=== PATIENT | female | born 1970 | race African-American/Black ===

== ENCOUNTER 2016-12-13 07:29 | Emergency (ER) | payer OTHER ==
[~2016-12-13] VITALS: Ht 177.8 cm; Wt 89.0 kg
[~2016-12-13 07:29] MED LIST: AMLO-511 PO; ASPI-556 PO; ATOR40TA28 PO; CHL25 PO; ESOM20CA31 PO; GLYB5TAB5 PO; IBUP-2070 PO; LOSA50TA37 PO; METF500T4 PO; MIRT15 PO; SPIR25 PO; VITAD1000 PO
[2016-12-13] MEDS ORDERED: IBUPROFEN 600 MG TABLET PO ONE (07:45)
[2016-12-13 08:57] VITALS: BP 137/87
[2016-12-13 09:03] LABS: GLUCOSE,POINT OF CARE 249 MG/DL (70-110)
== END 2016-12-13 09:03 | disposition home or self-care (01) ==
LOC: EMS 07:30
DX: S90.122A Contusion of left lesser toe(s) without damage to nail, initial encounter (principal); I10 Essential (primary) hypertension; E11.9 Type 2 diabetes mellitus without complications; Z79.82 Long term (current) use of aspirin; W50.0XXA Accidental hit or strike by another person, initial encounter; Y93.41 Activity, dancing; Y92.89 Other specified places as the place of occurrence of the external cause; Y99.8 Other external cause status
CPT/HCPCS: 82962; 99284

== ENCOUNTER 2016-12-25 09:19 | Emergency (ER) | payer OTHER ==
[~2016-12-25] VITALS: Ht 177.8 cm; Wt 86.0 kg
[2016-12-25 09:28] VITALS: BP 122/78
[2016-12-25 09:38] LABS: GLUCOSE,POINT OF CARE 239 MG/DL (70-110)
[2016-12-25] MEDS ORDERED: LIDOCAINE HCL BUFFERED 1% 20 ML VIAL INJ ONE (11:15)
== END 2016-12-25 11:42 | disposition home or self-care (01) ==
LOC: EMS 09:21
DX: S90.30XA Contusion of unspecified foot, initial encounter (principal); I10 Essential (primary) hypertension; E11.9 Type 2 diabetes mellitus without complications; Z79.82 Long term (current) use of aspirin; W45.8XXA Other foreign body or object entering through skin, initial encounter; Y93.89 Activity, other specified; Y92.89 Other specified places as the place of occurrence of the external cause; Y99.8 Other external cause status
CPT/HCPCS: 10160; 73630; 82962; 99284; J3490

== ENCOUNTER 2017-05-29 07:46 | Emergency (ER) | payer OTHER ==
[~2017-05-29] VITALS: Ht 177.8 cm; Wt 98.0 kg
[2017-05-29] MEDS ORDERED: ESOM20CA31 PO (08:00)
[2017-05-29] MEDS ORDERED: GLIP5 PO (08:00)
[2017-05-29] MEDS ORDERED: GABA-531 PO (08:00)
[2017-05-29] MEDS ORDERED: DAPA10TA PO (08:00)
[2017-05-29 08:12] LABS: GLUCOSE,POINT OF CARE 229 MG/DL (70-110)
[2017-05-29] MEDS ORDERED: KETOROLAC TROMETHAMINE 30 MG/ML VIAL IM ONE (09:00)
[2017-05-29] MEDS ORDERED: CYCLOBENZAPRINE HCL 10 MG TABLET PO ONE (09:00)
[2017-05-29 10:12] VITALS: BP 138/82
== END 2017-05-29 10:18 | disposition home or self-care (01) ==
LOC: EMS 07:48
DX: M54.5 Low back pain (principal); E11.9 Type 2 diabetes mellitus without complications; I10 Essential (primary) hypertension
CPT/HCPCS: 81025; 82962; 96372; 99283; J1885

== ENCOUNTER 2017-06-30 19:08 | Emergency (ER) | payer OTHER ==
[~2017-06-30] VITALS: Ht 177.8 cm; Wt 95.5 kg
[~2017-06-30 19:08] MED LIST changes: -ASPI-556 PO; -CHL25 PO; +DAPA10TA PO; +GABA-531 PO; +GLIP5 PO; -GLYB5TAB5 PO; -IBUP-2070 PO; -MIRT15 PO; -VITAD1000 PO
[2017-06-30] MEDS ORDERED: EMPA10TA PO (19:35)
[2017-06-30 19:37] LABS: GLUCOSE,POINT OF CARE 186 MG/DL (70-110)
[2017-06-30 19:48] LABS: GLUCOSE, URINE (UA) >=1000 mg/dL (NEGATIVE); KETONES,URINE TRACE mg/dL (NEGATIVE); LEUKOCYTE ESTERASE ,URINE NEGATIVE (NEGATIVE); OCCULT BLOOD,URINE NEGATIVE (NEGATIVE); PH,URINE 5.5 (5.0-8.0); PROTEIN,URINE NEGATIVE (NEGATIVE)
[2017-06-30 19:55] LABS: APPEARANCE,URINE HAZY (CLEAR); RBC,URINE 0-2 /HPF (0-2); SQUAMOUS EPITHELIAL CELL,UR Moderate /LPF (None Seen)
[2017-06-30] MEDS ORDERED: KETOROLAC TROMETHAMINE 30 MG/ML VIAL IM ONE (20:30)
[2017-06-30] MEDS ORDERED: CYCLOBENZAPRINE HCL 10 MG TABLET PO ONE (20:30)
[2017-06-30 20:55] LABS: BASOPHILS % (AUTO) 0.3 % (0.0-2.0); EOSINOPHILS % (AUTO) 2.8 % (1.0-6.0); HEMATOCRIT 40.5 % (36-46); HEMOGLOBIN 13.9 g/dL (12.0-16.0); LYMPHOCYTES # (AUTO) 3.2 K/uL (1.0-4.8); LYMPHOCYTES % (AUTO) 33.3 % (22.0-44.0); MEAN CORPUSCULAR HEMOGLOBIN 31.2 pg (26.0-34.0); MEAN CORPUSCULAR HGB CONC 34.3 G/dL (31.0-37.0); MEAN CORPUSCULAR VOLUME 91 fL (80-100); MONOCYTES # (AUTO) 0.9 K/uL (0.1-1.0); MONOCYTES % (AUTO) 9.1 % (2.0-9.0); NEUTROPHILS # (AUTO) 5.2 K/uL (1.8-7.7); NEUTROPHILS % (AUTO) 54.5 % (40.0-70.0); PLATELET COUNT (AUTO) 255 K/uL (150-450); RED BLOOD CELL COUNT(AUTO) 4.46 MIL/uL (4.00-5.20); RED CELL DISTRIBUTION WIDTH 12.6 % (11.5-14.5); WHITE BLOOD COUNT (AUTO) 9.6 K/uL (4.5-11.0)
[2017-06-30 21:25] LABS: ANION GAP 10 mmol/L (8-16); CALCIUM, TOTAL 9.6 mg/dL (8.8-10.5); CARBON DIOXIDE 25 mmol/L (22-29); CHLORIDE 104 mmol/L (98-107); GLOMERULAR FILTR. RATE CALC > 60 mL/min (>60); POTASSIUM 3.7 mmol/L (3.5-5.1); SODIUM SERUM 139 mmol/L (136-145); UREA NITROGEN, BLOOD 15 mg/dL (7-18)
[2017-06-30 21:31] LABS: ALANINE AMINOTRANSFERASE 25 U/L (12-78); ALBUMIN 3.9 g/dL (3.4-5.0); ASPARTATE AMINOTRANSFERASE 10 U/L (15-37); BILIRUBIN,TOTAL 0.4 mg/dL (0.1-1.0); TOTAL PROTEIN, SERUM 7.5 g/dL (6.4-8.2)
[2017-06-30 21:34] VITALS: BP 143/78
== END 2017-06-30 21:54 | disposition home or self-care (01) ==
LOC: EMS 19:09
DX: R10.9 Unspecified abdominal pain (principal); I10 Essential (primary) hypertension; E11.9 Type 2 diabetes mellitus without complications
CPT/HCPCS: 36415; 74176; 80053; 81001; 82962; 83690; 85025; 96372; 99285; J1885

== ENCOUNTER 2018-05-17 17:38 | Emergency (ER) | payer OTHER ==
[~2018-05-17] VITALS: Ht 177.8 cm; Wt 90.9 kg
[~2018-05-17 17:38] MED LIST changes: -DAPA10TA PO; +EMPA10TA PO; +LOSA50TA25 PO; -LOSA50TA37 PO; +METF-960 PO; -METF500T4 PO
[2018-05-17] MEDS ORDERED: BACITRACIN 0.9 GM PACKET OINTMENT TP ONE (18:30)
[2018-05-17] MEDS ORDERED: POVIDONE-IODINE 10% 15 ML SOLUTION UD TP ONE (18:30)
[2018-05-17] MEDS ORDERED: NAPROXEN 250 MG TABLET PO ONE (18:30)
[2018-05-17 20:07] VITALS: BP 149/80
== END 2018-05-17 20:09 | disposition home or self-care (01) ==
LOC: EMS 17:39
DX: S60.032A Contusion of left middle finger without damage to nail, initial encounter (principal); S60.031A Contusion of right middle finger without damage to nail, initial encounter; S90.121A Contusion of right lesser toe(s) without damage to nail, initial encounter; M25.421 Effusion, right elbow; I10 Essential (primary) hypertension; E11.9 Type 2 diabetes mellitus without complications; Z79.84 Long term (current) use of oral hypoglycemic drugs; Y04.0XXA Assault by unarmed brawl or fight, initial encounter; Y93.89 Activity, other specified; Y92.89 Other specified places as the place of occurrence of the external cause; Y99.8 Other external cause status
CPT/HCPCS: 29280; 99284